=== PATIENT | male | born 1955 | race Caucasian/White ===

== ENCOUNTER 2016-07-17 12:00 | Emergency (ER) | payer BC, OTHER ==
[2016-07-17] MEDS ORDERED: PROPARACAINE HCL OPTH 15ML BTL OPTH ONE (12:15)
--- NOTE | 2016-07-17 12:17 | Emergency Department Record ---
History of Present Illness - General Chief complaint: Eye Problem Stated complaint: L EYE INJURY Time Seen by Provider: 07/17/16 12:04 Source: Patient, Family Mode of Arrival: Ambulatory Limitations: No limitations - History of Present Illness Initial comments: 61 yo male presents after injuring his eye yesterday mowing. He was mowing past an evergreen tree and was hit by the branches to the face. He has redness and irritation. He was wearing glasses. No contact use. No blood or bleeding. chief complaint: Eye pain, Foreign body Onset/Timin -: Days(s) Onset Description: Sudden Location: Left eye Place: Home If Injury: None Eye Symptoms: Burning, Itching, Pain, Redness Severity: Mild Severity scale (1-10): 7 If Pain, Quality: Aching Consistency: Constant Associated Symptoms: None Treatments Prior to Arrival: NSAID - Related Data Visual acuity (L) = 20/: 50 Visual acuity (R) = 20/: 40 With correction: Yes (near and f) Patient Tetanus UTD (within 5 yrs): No Allergies Allergy/AdvReac Type Severity Reaction Status Date / Time Penicillins Allergy RASH Verified 07/17/16 12:13 Travel Screening - Travel/Exposure Within Last 30 Days Have you traveled within the last 30 days?: No - Travel/Exposure Within Last Year Have you traveled outside the [place] in the last year?: No - Additonal Travel Details Have you been exposed to anyone with a communicable illness?: No - Travel Symptoms Symptom Screening: None Review of Systems Constitutional: Denies: Chills, Fever, Weakness Eyes: Reports: Eye pain, Photophobia, Vision change. Denies: Eye discharge ENT: Denies: Congestion, Throat pain Respiratory: Denies: Cough Cardiovascular: Denies: Chest pain, Palpitations, Syncope Endocrine: Denies: Fatigue Gastrointestinal: Denies: Abdominal pain, Diarrhea, Nausea, Vomiting Genitourinary: Denies: Hematuria Musculoskeletal: Denies: Arthralgia, Back pain, Myalgia Skin: Denies: Change in color, Rash Neurological: Denies: Headache Psychiatric: Denies: Anxiety Hematological/Lymphatic: Denies: Easy bleeding, Easy bruising, Swollen glands Past Medical History - SOCIAL HISTORY Smoking Status: Never smoker Alcohol Use: None Drug Use: None - RESPIRATORY Hx Respiratory Disorders: No - CARDIOVASCULAR Hx Hypertension: Yes Hx Irregular Heartbeat: Yes - ENDOCRINE Hx Diabetes: Yes Family Medical History Any Significant Family History?: Yes Physical Exam - General General Appearance: Alert, Oriented x3, Cooperative, No acute distress Limitations: No limitations - Head Head exam: Normal inspection - Eye Eye exam: PERRL, Conjunctival injection (mild), EOMI. negative: Normal appearance, Periorbital swelling, Periorbital tenderness, Scleral icterus Pupils: Normal accommodation, Other (round regular pupil, no hyphema, ). negative: Irregular, Unequal With correction: Yes (near and f) Image of Eyes: 1 - small area of uptake consistent with abrasion, no FB no organic debris - ENT ENT exam: Normal exam Ear exam: Normal external inspection Nasal Exam: Normal inspection Mouth exam: Normal external inspection - Neck Neck exam: Normal inspection, Full ROM. negative: Tenderness - Rectal Rectal exam: Deferred - exam: Deferred - Neurological Neurological exam: Alert, Oriented X3 - Psychiatric Psychiatric exam: Normal affect, Normal mood - Skin Skin exam: Dry, Intact, Normal color, Warm Course Vital Signs 07/17/16 12:02 Temperature 97.6 F Pulse Rate 66 Respiratory 16 Rate Blood Pressure 151/80 Pulse Ox 97 - Reevaluation(s) Reevaluation #1: The eye was stained He has stain uptake on the wood's lamp mid eye Slit Lamp Examination No cells, no hyphema, small abrasion as noted No FB or arganic material We discussed corneal abrasions He is followed at [facility] He will call tomorrow for close follow up 07/17/16 12:34 Disposition Disposition: Discharge (corneal abrasion) Clinical Impression: Corneal abrasion, left Qualifiers: Encounter type: initial encounter Qualified Code(s): S05.02XA - Injury of conjunctiva and corneal abrasion without foreign body, left eye, initial encounter Disposition: Home, Self-Care Condition: (1) Good Instructions: Corneal Abrasion (ED) Additional Instructions: Call your doctor tomorrow for close follow up the left eye corneal abrasion Return if you have any vision changes or concern Take the eye drops 2 every 4 hours Forms: Patient Portal Access Time of Disposition: 12:38
[2016-07-17] MEDS ORDERED: POLYMYXIN B SULF/TRIMETHOPRIM 10ML BTL OPTH SCH (12:30)
[2016-07-17] MEDS ORDERED: TETANUS AND DIPHTHERIA PF 0.5 ML SYR IM ONE (12:47)
[2016-07-17] MEDS ORDERED: Diph,Pert(Acell),Tet Vac 0.5 ML SYR IM ONE (12:49)
== END 2016-07-17 13:01 | disposition home or self-care (01) ==
LOC: ER 12:00
DX: S05.02XA Injury of conjunctiva and corneal abrasion without foreign body, left eye, initial encounter (principal); W22.8XXA Striking against or struck by other objects, initial encounter; Y93.H9 Activity, other involving exterior property and land maintenance, building and construction; Y92.007 Garden or yard of unspecified non-institutional (private) residence as the place of occurrence of the external cause
CPT/HCPCS: 90715; 99283